=== PATIENT | female | born 1965 | race Caucasian/White ===

== ENCOUNTER 2024-10-12 09:41 | Inpatient (IN) | payer MEDICAID ==
[2024-10-12] VITALS (10 sets, daily range): BP systolic 107–131; BP diastolic 65–77; PULSE 68–86; RESP 14–18; TEMP 98.3–98.4; O2SAT 93–98
[~2024-10-12] VITALS: Ht 157.5 cm; Wt 42.0 kg
[~2024-10-12 09:41] MED LIST: IBUP-1986 PO; ONDA-243 PO; OXYC-134 PO
[2024-10-12 10:27] LABS: BASOPHILS # (AUTO) 0.1 X10'3 (0-0.2); BASOPHILS % (AUTO) 1.1 % (0-1); EOSINOPHILS % (AUTO) 0.6 % (0-6); HEMATOCRIT 38.4 % (35.0-45.0); HEMOGLOBIN 12.4 g/dl (12.0-16.0); LYMPHOCYTES # (AUTO) 0.9 X10'3 (1.1-4.8); LYMPHOCYTES % (AUTO) 18.6 % (21-51); MEAN CORPUSCULAR HEMOGLOBIN 31.3 PG (27.0-31.0); MEAN CORPUSCULAR HGB CONC 32.3 g/dL (33.0-36.5); MEAN CORPUSCULAR VOLUME 96.7 FL (78-98); MEAN PLATELET VOLUME 7.3 FL (7.4-10.4); MONOCYTES # (AUTO) 0.5 X10'3 (0-0.9); MONOCYTES % (AUTO) 9.2 % (2-12); NEUTROPHILS # (AUTO) 3.6 X10'3 (1.8-7.7); NEUTROPHILS % (AUTO) 70.5 % (42-75); PLATELET COUNT 302 X10'3 (140-440); RED BLOOD COUNT 3.97 X10'6 (4.20-5.60); RED CELL DISTRIBUTION WIDTH 13.8 % (11.5-14.5); WHITE BLOOD COUNT 5.1 X10'3 (4.5-11.0)
[2024-10-12 10:43] LABS: ALANINE AMINOTRANSFERASE 65 U/L (12-78); ALBUMIN 2.6 G/DL (3.4-5.0); ALBUMIN/GLOBULIN RATIO 0.7 (1.1-1.5); ALKALINE PHOSPHATASE 79 IU/L (46-116); ANION GAP 0 (8-16); ASPARTATE AMINO TRANSFERASE 23 U/L (10-37); BILIRUBIN,TOTAL 0.3 MG/DL (0.1-1.0); BLOOD UREA NITROGEN 10 MG/DL (7-18); BUN/CREATININE RATIO 32.3 (10.0-20.0); CALCIUM 8.1 MG/DL (8.5-10.1); CHLORIDE 99 MMOL/L (99-107); CREATININE 0.31 MG/DL (0.40-0.90); GLUCOSE 117 MG/DL (70-104); POTASSIUM 3.3 MMOL/L (3.5-5.1); SODIUM 137 MMOL/L (135-145); TOTAL CARBON DIOXIDE 37.6 MMOL/L (24-32); TOTAL PROTEIN 6.1 G/DL (6.4-8.2); eCRCL 131 ML/MIN; eGFR > 90 ML/MIN
[2024-10-12] MEDS: methylPREDNISolone sod succ 125mg/2ml vial IV ONE (10:48)
[2024-10-12] MEDS: LORazepam 1 MG tablet PO ONE (10:48)
[2024-10-12 10:54] LABS: PRO BRAIN NATRIURETIC PEPTIDE 246 PG/ML (0-125)
[2024-10-12] MEDS: CefTRIAXone 2gm/D5W 50ml BAG 50 ML IV ONE (11:19)
[2024-10-12] MEDS: ipratropium/albuterol 3ml nebule NEB ONE (11:20)
[2024-10-12] MEDS: azithromycin/NS 500mg/250ml 250 ML IV ONE (11:20)
[2024-10-12] MEDS: HYDROcodone/acetaminophen 5mg/325mg tablet PO ONE (11:49)
[2024-10-12] MEDS ORDERED: ondansetron/PF 4mg/2ml inj IV PRN (13:55)
[2024-10-12] MEDS ORDERED: magnesium hydroxide 30ml (MOM) UD suspension PO PRN (13:55)
[2024-10-12] MEDS ORDERED: potassium Cl 40MEQ/1/2NS 520ml 520 ML IV PRN (13:55)
[2024-10-12] MEDS ORDERED: magnesium Cl slow-release 64mg tablet PO PRN (13:55)
[2024-10-12] MEDS ORDERED: potassium Cl 20 mEq SR tablet PO PRN ×2 (13:55)
[2024-10-12] MEDS ORDERED: magnesium sulf-water 2g/50mL 50 ML IV PRN (13:55)
[2024-10-12] MEDS ORDERED: magnesium sulf-water 4G/100mL 100 ML IV PRN (13:55)
[2024-10-12] MEDS ORDERED: mag hydrox/Alum hydrox/simeth 30ml oral suspension PO PRN (13:55)
[2024-10-12 14:41] LABS: MAGNESIUM 1.7 MG/DL (1.5-2.4); PHOSPHORUS 2.7 MG/DL (2.3-4.5)
[2024-10-12] MEDS: normal saline 1000ml 1,000 ML IV SCH (15:25)
[2024-10-12] MEDS: azithromycin/NS 500mg/250ml 250 ML IV SCH (15:25)
[2024-10-12] MEDS: ipratropium/albuterol 3ml nebule NEB SCH (16:36)
[2024-10-12] MEDS ORDERED: ALBU18HF2 INH (16:51)
[2024-10-12] MEDS ORDERED: CLON-570 PO (16:51)
[2024-10-12] MEDS ORDERED: MIRT-87 PO (16:51)
[2024-10-12] MEDS ORDERED: ESCI20TA39 (16:51)
[2024-10-12] MEDS: K and/or MAG REPLACEMENT MC SCH (19:48)
[2024-10-12] MEDS: acetaminophen 325mg tablet PO PRN (19:55)
[2024-10-12] MEDS: ipratropium/albuterol 3ml nebule NEB PRN (20:31)
[2024-10-12] MEDS: Melatonin 3mg tablet PO SCH (21:03)
[2024-10-12] MEDS: clonazePAM 1mg tablet PO PRN (21:03)
[2024-10-12] MEDS: mirtazapine 15mg tablet PO SCH (21:03)
[2024-10-13] VITALS (16 sets, daily range): BP systolic 100–125; BP diastolic 51–79; PULSE 62–87; RESP 16–20; TEMP 97.8–98.9; O2SAT 93–100
[2024-10-13 06:07] LABS: BASOPHILS # (AUTO) 0.1 X10'3 (0-0.2); BASOPHILS % (AUTO) 0.9 % (0-1); EOSINOPHILS % (AUTO) 0.5 % (0-6); HEMATOCRIT 34.9 % (35.0-45.0); HEMOGLOBIN 11.5 g/dl (12.0-16.0); LYMPHOCYTES # (AUTO) 1.7 X10'3 (1.1-4.8); LYMPHOCYTES % (AUTO) 28.4 % (21-51); MEAN CORPUSCULAR HEMOGLOBIN 32.1 PG (27.0-31.0); MEAN CORPUSCULAR VOLUME 97.2 FL (78-98); MEAN PLATELET VOLUME 7.8 FL (7.4-10.4); MONOCYTES # (AUTO) 0.8 X10'3 (0-0.9); MONOCYTES % (AUTO) 12.9 % (2-12); NEUTROPHILS # (AUTO) 3.4 X10'3 (1.8-7.7); NEUTROPHILS % (AUTO) 57.3 % (42-75); PLATELET COUNT 303 X10'3 (140-440); RED BLOOD COUNT 3.59 X10'6 (4.20-5.60); RED CELL DISTRIBUTION WIDTH 13.4 % (11.5-14.5); WHITE BLOOD COUNT 5.9 X10'3 (4.5-11.0)
[2024-10-13 06:24] LABS: ALBUMIN 2.2 G/DL (3.4-5.0); ANION GAP 0 (8-16); BLOOD UREA NITROGEN 10 MG/DL (7-18); BUN/CREATININE RATIO 45.5 (10.0-20.0); CALCIUM 8.3 MG/DL (8.5-10.1); CHLORIDE 104 MMOL/L (99-107); CREATININE 0.22 MG/DL (0.40-0.90); GLUCOSE 94 MG/DL (70-104); POTASSIUM 3.8 MMOL/L (3.5-5.1); SODIUM 144 MMOL/L (135-145); TOTAL CARBON DIOXIDE 39.7 MMOL/L (24-32); eCRCL 185 ML/MIN; eGFR > 90 ML/MIN
[2024-10-13] MEDS: budesonide 0.5mg/2ml UD nebule IH SCH (08:05)
[2024-10-13] MEDS: methylPREDNISolone sod succ 125mg/2ml vial IV SCH (08:56)
[2024-10-13] MEDS: enoxaparin 40mg/0.4ml syringe SUBCUT SCH (09:00)
[2024-10-13] MEDS: CefTRIAXone/D5W-Rocephin 1gm 50 ML IV SCH (09:01)
[2024-10-13 13:04] LABS: FREE T4 (FREE THYROXINE) 0.79 NG/DL (0.73-1.40); THYROID STIMULATING HORMONE 0.84 ulU/ml (0.34-4.50)
[2024-10-13] MEDS: HYDROcodone/acetaminophen 5mg/325mg tablet PO PRN (13:19)
[2024-10-13] MEDS: lactose-reduced food (Ensure Enlive) - 237ml bottle PO SCH (18:00)
[2024-10-13] MEDS: acetaZOLAMIDE 250mg tablet PO SCH (20:55)
[2024-10-14 06:00] VITALS: BP 109/71; PULSE 75; RESP 16; TEMP 98.6; O2SAT 93
[2024-10-14 06:45] LABS: BASOPHILS # (AUTO) 0.1 X10'3 (0-0.2); BASOPHILS % (AUTO) 1.3 % (0-1); EOSINOPHILS % (AUTO) 0 % (0-6); HEMATOCRIT 37.6 % (35.0-45.0); HEMOGLOBIN 12.1 g/dl (12.0-16.0); LYMPHOCYTES # (AUTO) 0.8 X10'3 (1.1-4.8); LYMPHOCYTES % (AUTO) 12.7 % (21-51); MEAN CORPUSCULAR HEMOGLOBIN 31.7 PG (27.0-31.0); MEAN CORPUSCULAR HGB CONC 32.3 g/dL (33.0-36.5); MEAN CORPUSCULAR VOLUME 98.2 FL (78-98); MEAN PLATELET VOLUME 8.1 FL (7.4-10.4); MONOCYTES # (AUTO) 0.2 X10'3 (0-0.9); MONOCYTES % (AUTO) 3.8 % (2-12); NEUTROPHILS % (AUTO) 82.2 % (42-75); PLATELET COUNT 351 X10'3 (140-440); RED BLOOD COUNT 3.82 X10'6 (4.20-5.60); RED CELL DISTRIBUTION WIDTH 14.1 % (11.5-14.5); WHITE BLOOD COUNT 6.1 X10'3 (4.5-11.0)
[2024-10-14 07:08] LABS: ALBUMIN 2.4 G/DL (3.4-5.0); ANION GAP 4 (8-16); BLOOD UREA NITROGEN 16 MG/DL (7-18); BUN/CREATININE RATIO 47.1 (10.0-20.0); CALCIUM 8.7 MG/DL (8.5-10.1); CHLORIDE 106 MMOL/L (99-107); CREATININE 0.34 MG/DL (0.40-0.90); GLUCOSE 129 MG/DL (70-104); POTASSIUM 4.3 MMOL/L (3.5-5.1); SODIUM 142 MMOL/L (135-145); TOTAL CARBON DIOXIDE 32.4 MMOL/L (24-32); eCRCL 120 ML/MIN; eGFR > 90 ML/MIN
[2024-10-14 08:02] VITALS: PULSE 66; RESP 16; O2SAT 100
[2024-10-14] MEDS: ipratropium/albuterol 3ml nebule NEB SCH (08:02)
[2024-10-14 08:10] VITALS: PULSE 67; RESP 18
[2024-10-14 10:00] VITALS: BP 114/73; PULSE 96; RESP 16; TEMP 98.1; O2SAT 100
[2024-10-14] MEDS ORDERED: PRED10TA23 PO (10:40)
[2024-10-14] MEDS ORDERED: BUDE10.26 INH (10:40)
[2024-10-14] MEDS ORDERED: LEVO-65 PO (10:40)
[2024-10-14 10:45] VITALS: RESP 16; O2SAT 100
[2024-10-14] MEDS ORDERED: ALBU18HF2 INH (10:46)
== END 2024-10-14 16:30 | disposition home health service (06) | DRG 140 ==
LOC: ER 09:41 → ED HOLD 11:18 → ORTHO 4S 19:20
PROVIDERS: ADMIT Internal Medicine; ATTEND Internal Medicine
DX: J44.1 Chronic obstructive pulmonary disease with (acute) exacerbation (principal); J96.21 Acute and chronic respiratory failure with hypoxia; J18.9 Pneumonia, unspecified organism; L89.159 Pressure ulcer of sacral region, unspecified stage; J44.0 Chronic obstructive pulmonary disease with (acute) lower respiratory infection; S63.591A Other specified sprain of right wrist, initial encounter; W18.39XA Other fall on same level, initial encounter; Y93.89 Activity, other specified; Y92.89 Other specified places as the place of occurrence of the external cause; Y99.8 Other external cause status; Z88.5 Allergy status to narcotic agent; Z90.710 Acquired absence of both cervix and uterus; Z87.442 Personal history of urinary calculi
CPT/HCPCS: 36415; 71045; 73110; 80048; 80053; 83735; 83880; 84100; 84439; 84443; 84484; 85025; 87081; 93005; 94640; 94760; 99285; A4615; A6209; A6212; A6213; G0378; J0456; J0696; J1650; J2919; J7030

== ENCOUNTER 2024-10-19 21:17 | Inpatient (IN) | payer MEDICAID ==
[~2024-10-19] VITALS: Ht 160 cm; Wt 45.4 kg
[~2024-10-19 21:17] MED LIST changes: +ALBU18HF2 INH; +BUDE10.26 INH; +CLON-570 PO; +ESCI20TA39; -IBUP-1986 PO; +LEVO-65 PO; +MIRT-87 PO; -ONDA-243 PO; -OXYC-134 PO; +PRED10TA23 PO
[2024-10-19] MEDS: ipratropium/albuterol 3ml nebule NEB STA ×2 (21:36→22:28)
[2024-10-19 21:39] VITALS: PULSE 107; RESP 20; O2SAT 97
[2024-10-19 21:47] LABS: BASOPHILS % (AUTO) 0.2 % (0-1); EOSINOPHILS % (AUTO) 0.5 % (0-6); HEMATOCRIT 35.5 % (35.0-45.0); HEMOGLOBIN 11.7 g/dl (12.0-16.0); LYMPHOCYTES # (AUTO) 0.6 X10'3 (1.1-4.8); LYMPHOCYTES % (AUTO) 9.9 % (21-51); MEAN CORPUSCULAR HEMOGLOBIN 32.4 PG (27.0-31.0); MEAN CORPUSCULAR HGB CONC 32.9 g/dL (33.0-36.5); MEAN CORPUSCULAR VOLUME 98.4 FL (78-98); MEAN PLATELET VOLUME 7.1 FL (7.4-10.4); MONOCYTES # (AUTO) 1.2 X10'3 (0-0.9); MONOCYTES % (AUTO) 20.1 % (2-12); NEUTROPHILS # (AUTO) 4.3 X10'3 (1.8-7.7); NEUTROPHILS % (AUTO) 69.3 % (42-75); PLATELET COUNT 329 X10'3 (140-440); RED BLOOD COUNT 3.61 X10'6 (4.20-5.60); RED CELL DISTRIBUTION WIDTH 14.4 % (11.5-14.5); WHITE BLOOD COUNT 6.2 X10'3 (4.5-11.0)
[2024-10-19 21:48] VITALS: PULSE 102; RESP 17; O2SAT 98
[2024-10-19] MEDS: methylPREDNISolone sod succ 125mg/2ml vial IV ONE (22:07)
[2024-10-19 22:08] LABS: ALBUMIN 2.7 G/DL (3.4-5.0); ANION GAP -1 (8-16); BLOOD UREA NITROGEN 24 MG/DL (7-18); BUN/CREATININE RATIO 64.9 (10.0-20.0); CALCIUM 8.6 MG/DL (8.5-10.1); CHLORIDE 101 MMOL/L (99-107); CREATININE 0.37 MG/DL (0.40-0.90); GLUCOSE 131 MG/DL (70-104); POTASSIUM 4.5 MMOL/L (3.5-5.1); PRO BRAIN NATRIURETIC PEPTIDE 202 PG/ML (0-125); SODIUM 141 MMOL/L (135-145); eCRCL 119 ML/MIN; eGFR > 90 ML/MIN
[2024-10-19 22:16] LABS: TOTAL CARBON DIOXIDE 41.1 MMOL/L (24-32)
[2024-10-19 22:21] LABS: TOTAL CELLS COUNTED 100
[2024-10-19] MEDS: LORazepam 2 mg/ml vial IV ONE ×2 (22:27→23:54)
[2024-10-19 22:28] LABS: D-DIMER 0.58 MG/L FEU (0-0.50)
[2024-10-19] MEDS: magnesium sulf-water 2g/50mL 50 ML IV ONE (22:29)
[2024-10-19 22:32] VITALS: PULSE 105; RESP 20; O2SAT 99
[2024-10-19 22:44] VITALS: PULSE 99; RESP 19; O2SAT 94
[2024-10-19] MEDS: azithromycin/NS 500mg/250ml 250 ML IV ONE (23:42)
[2024-10-19] MEDS: HYDROcodone/acetaminophen 5mg/325mg tablet PO ONE (23:55)
[2024-10-20] VITALS (22 sets, daily range): BP systolic 114–147; BP diastolic 40–95; PULSE 64–94; RESP 16–26; TEMP 97–98.7; O2SAT 92–96
[2024-10-20] MEDS ORDERED: magnesium sulf-water 2g/50mL 50 ML IV PRN (00:45)
[2024-10-20] MEDS ORDERED: mag hydrox/Alum hydrox/simeth 30ml oral suspension PO PRN (00:45)
[2024-10-20] MEDS ORDERED: magnesium hydroxide 30ml (MOM) UD suspension PO PRN (00:45)
[2024-10-20] MEDS ORDERED: potassium Cl 20 mEq SR tablet PO PRN ×2 (00:45)
[2024-10-20] MEDS ORDERED: magnesium sulf-water 4G/100mL 100 ML IV PRN (00:45)
[2024-10-20] MEDS ORDERED: ondansetron/PF 4mg/2ml inj IV PRN (00:45)
[2024-10-20] MEDS ORDERED: potassium Cl 40MEQ/1/2NS 520ml 520 ML IV PRN (00:45)
[2024-10-20] MEDS ORDERED: acetaminophen 325mg tablet PO PRN (00:45)
[2024-10-20] MEDS ORDERED: magnesium Cl slow-release 64mg tablet PO PRN (00:45)
[2024-10-20] MEDS ORDERED: ipratropium/albuterol 3ml nebule NEB PRN (00:50)
[2024-10-20] MEDS: normal saline 1000ml 1,000 ML IV SCH ×2 (00:55→16:05)
[2024-10-20 01:15] LABS: ABG BASE EXCESS 2.5 mmol/L (-2.0-3.0); ABG HCO3 30.2 mmol/L (21.0-28.0); ABG OXYGEN SATURATION 95.3 % (94.0-98.0); ABG PCO2 (T) 62.1 mmHg (32.0-45.0); ABG PH (T) 7.305 (7.350-7.450); ABG PO2 (T) 79.7 mmHg (83.0-108.0); ALLEN'S TEST POSITIVE; FCOHb 0.3 % (0.5-1.5); FHHb 4.7 % (0.0-5.0); FMetHb 0.3 % (0.0-1.5); FO2Hb 94.7 % (94.0-98.0); MODE NASAL CANNULA; TOTAL HEMOGLOBIN 12.5 G/dl (12.0-16.0)
[2024-10-20 03:38] LABS: BASOPHILS % (AUTO) 0.1 % (0-1); EOSINOPHILS % (AUTO) 0 % (0-6); HEMATOCRIT 34.8 % (35.0-45.0); HEMOGLOBIN 11.1 g/dl (12.0-16.0); LYMPHOCYTES % (AUTO) 3.7 % (21-51); MEAN CORPUSCULAR HEMOGLOBIN 31.5 PG (27.0-31.0); MEAN CORPUSCULAR HGB CONC 31.9 g/dL (33.0-36.5); MEAN CORPUSCULAR VOLUME 98.6 FL (78-98); MONOCYTES % (AUTO) 1.7 % (2-12); NEUTROPHILS % (AUTO) 94.5 % (42-75); PLATELET COUNT 318 X10'3 (140-440); RED BLOOD COUNT 3.53 X10'6 (4.20-5.60); RED CELL DISTRIBUTION WIDTH 14.4 % (11.5-14.5); WHITE BLOOD COUNT 6.2 X10'3 (4.5-11.0)
[2024-10-20 03:39] LABS: ALANINE AMINOTRANSFERASE 132 U/L (12-78); ALBUMIN 2.6 G/DL (3.4-5.0); ALBUMIN/GLOBULIN RATIO 0.9 (1.1-1.5); ALKALINE PHOSPHATASE 67 IU/L (46-116); ANION GAP -2 (8-16); ASPARTATE AMINO TRANSFERASE 66 U/L (10-37); BILIRUBIN,TOTAL 0.1 MG/DL (0.1-1.0); BLOOD UREA NITROGEN 21 MG/DL (7-18); BUN/CREATININE RATIO 63.6 (10.0-20.0); CALCIUM 8.1 MG/DL (8.5-10.1); CHLORIDE 103 MMOL/L (99-107); CREATININE 0.33 MG/DL (0.40-0.90); GLUCOSE 153 MG/DL (70-104); LYMPHOCYTES # (AUTO) 0.2 X10'3 (1.1-4.8); MAGNESIUM 2.2 MG/DL (1.5-2.4); MONOCYTES # (AUTO) 0.1 X10'3 (0-0.9); NEUTROPHILS # (AUTO) 5.8 X10'3 (1.8-7.7); PHOSPHORUS 2.9 MG/DL (2.3-4.5); POTASSIUM 4.9 MMOL/L (3.5-5.1); SODIUM 141 MMOL/L (135-145); TOTAL CARBON DIOXIDE 39.9 MMOL/L (24-32); TOTAL PROTEIN 5.5 G/DL (6.4-8.2); eCRCL 133 ML/MIN; eGFR > 90 ML/MIN
[2024-10-20] MEDS: albuterol 2.5 MG/3 ML nebule NEB SCH (03:52)
[2024-10-20 03:56] LABS: APTT 25 SECONDS (22-32); PROTHROMBIN TIME 10.1 SECONDS (9.0-12.0)
[2024-10-20] MEDS: K and/or MAG REPLACEMENT MC SCH (07:39)
[2024-10-20] MEDS: docusate sod 100mg capsule PO SCH (07:39)
[2024-10-20] MEDS: acetaminophen 325mg tablet PO PRN (07:46)
[2024-10-20] MEDS: methylPREDNISolone sod succ 125mg/2ml vial IV SCH (07:46)
[2024-10-20] MEDS: ESCITALOPRAM 10 mg tablet 10 MG TABLET PO SCH (07:47)
[2024-10-20] MEDS: LORazepam 0.5 MG tablet PO PRN (10:25)
[2024-10-20] MEDS ORDERED: iohexol 300mg/ml 100ml inj. ONE (12:09)
[2024-10-20] MEDS: HYDROcodone/acetaminophen 5mg/325mg tablet PO PRN (12:15)
[2024-10-20] MEDS: acetaZOLAMIDE 250mg tablet PO ONE (14:21)
[2024-10-20] MEDS: clonazePAM 1mg tablet PO PRN (17:06)
[2024-10-20] MEDS: enoxaparin 40mg/0.4ml syringe SQ SCH (19:53)
[2024-10-20] MEDS: mirtazapine 15mg tablet PO SCH (20:06)
[2024-10-20] MEDS: azithromycin/NS 500mg/250ml 250 ML IV SCH (22:47)
[2024-10-21] VITALS (21 sets, daily range): BP systolic 114–150; BP diastolic 62–76; PULSE 70–97; RESP 12–26; TEMP 96.9–98.5; O2SAT 74–96
[2024-10-21 07:26] LABS: BASOPHILS % (AUTO) 0.3 % (0-1); EOSINOPHILS % (AUTO) 0 % (0-6); HEMATOCRIT 34.6 % (35.0-45.0); HEMOGLOBIN 11.2 g/dl (12.0-16.0); LYMPHOCYTES # (AUTO) 0.7 X10'3 (1.1-4.8); LYMPHOCYTES % (AUTO) 14.1 % (21-51); MEAN CORPUSCULAR HEMOGLOBIN 32.1 PG (27.0-31.0); MEAN CORPUSCULAR HGB CONC 32.5 g/dL (33.0-36.5); MEAN CORPUSCULAR VOLUME 98.8 FL (78-98); MEAN PLATELET VOLUME 7.7 FL (7.4-10.4); MONOCYTES # (AUTO) 0.9 X10'3 (0-0.9); MONOCYTES % (AUTO) 18.2 % (2-12); NEUTROPHILS # (AUTO) 3.4 X10'3 (1.8-7.7); NEUTROPHILS % (AUTO) 67.4 % (42-75); PLATELET COUNT 304 X10'3 (140-440); RED CELL DISTRIBUTION WIDTH 14.7 % (11.5-14.5)
[2024-10-21 07:42] LABS: APTT 26 SECONDS (22-32); PROTHROMBIN TIME 10.5 SECONDS (9.0-12.0)
[2024-10-21 07:52] LABS: ALANINE AMINOTRANSFERASE 140 U/L (12-78); ALBUMIN 2.3 G/DL (3.4-5.0); ALBUMIN/GLOBULIN RATIO 0.8 (1.1-1.5); ALKALINE PHOSPHATASE 59 IU/L (46-116); ANION GAP 1 (8-16); ASPARTATE AMINO TRANSFERASE 59 U/L (10-37); BILIRUBIN,TOTAL 0.1 MG/DL (0.1-1.0); BLOOD UREA NITROGEN 17 MG/DL (7-18); BUN/CREATININE RATIO 54.8 (10.0-20.0); CALCIUM 8.3 MG/DL (8.5-10.1); CHLORIDE 103 MMOL/L (99-107); CREATININE 0.31 MG/DL (0.40-0.90); GLUCOSE 107 MG/DL (70-104); MAGNESIUM 1.7 MG/DL (1.5-2.4); PHOSPHORUS 3.6 MG/DL (2.3-4.5); POTASSIUM 4.3 MMOL/L (3.5-5.1); SODIUM 143 MMOL/L (135-145); TOTAL CARBON DIOXIDE 39.4 MMOL/L (24-32); TOTAL PROTEIN 5.1 G/DL (6.4-8.2); eCRCL 142 ML/MIN; eGFR > 90 ML/MIN
[2024-10-21] MEDS: LORazepam 2 mg/ml vial IV PRN (08:03)
[2024-10-21 08:37] LABS: TOTAL CELLS COUNTED 100
[2024-10-21 08:38] LABS: PLATELET ESTIMATE NORMAL
[2024-10-21 08:40] LABS: STOMATOCYTES 1+
[2024-10-21] MEDS: JUVEN Shake w/Arg/Glut/Ca2+Bmb (Juven 19.3gm) pkt 240ml PO SCH (12:30)
[2024-10-21] MEDS: acetaZOLAMIDE 250mg tablet PO ONE (12:35)
[2024-10-21] MEDS: lactose-reduced food (Ensure Enlive) - 237ml bottle PO SCH (18:00)
[2024-10-22] VITALS (13 sets, daily range): BP systolic 115–138; BP diastolic 71–83; PULSE 69–94; RESP 14–24; TEMP 97.2–98.8; O2SAT 94–98
[2024-10-22 06:43] LABS: BASOPHILS % (AUTO) 0.1 % (0-1); EOSINOPHILS % (AUTO) 0 % (0-6); HEMATOCRIT 33.9 % (35.0-45.0); HEMOGLOBIN 11.2 g/dl (12.0-16.0); LYMPHOCYTES # (AUTO) 0.9 X10'3 (1.1-4.8); LYMPHOCYTES % (AUTO) 8.8 % (21-51); MEAN CORPUSCULAR HEMOGLOBIN 32.6 PG (27.0-31.0); MEAN CORPUSCULAR VOLUME 98.8 FL (78-98); MEAN PLATELET VOLUME 7.3 FL (7.4-10.4); MONOCYTES # (AUTO) 1.4 X10'3 (0-0.9); MONOCYTES % (AUTO) 14.7 % (2-12); NEUTROPHILS # (AUTO) 7.5 X10'3 (1.8-7.7); NEUTROPHILS % (AUTO) 76.4 % (42-75); PLATELET COUNT 275 X10'3 (140-440); RED BLOOD COUNT 3.43 X10'6 (4.20-5.60); WHITE BLOOD COUNT 9.8 X10'3 (4.5-11.0)
[2024-10-22 06:52] LABS: APTT 25 SECONDS (22-32); PROTHROMBIN TIME 10.5 SECONDS (9.0-12.0)
[2024-10-22 06:56] LABS: ALANINE AMINOTRANSFERASE 242 U/L (12-78); ALBUMIN 2.2 G/DL (3.4-5.0); ALBUMIN/GLOBULIN RATIO 0.8 (1.1-1.5); ALKALINE PHOSPHATASE 58 IU/L (46-116); ANION GAP -2 (8-16); ASPARTATE AMINO TRANSFERASE 96 U/L (10-37); BILIRUBIN,TOTAL 0.1 MG/DL (0.1-1.0); BLOOD UREA NITROGEN 17 MG/DL (7-18); CALCIUM 8.3 MG/DL (8.5-10.1); CHLORIDE 104 MMOL/L (99-107); CREATININE 0.27 MG/DL (0.40-0.90); GLUCOSE 104 MG/DL (70-104); MAGNESIUM 1.6 MG/DL (1.5-2.4); POTASSIUM 4.4 MMOL/L (3.5-5.1); SODIUM 144 MMOL/L (135-145); TOTAL PROTEIN 4.9 G/DL (6.4-8.2); eCRCL 163 ML/MIN; eGFR > 90 ML/MIN
[2024-10-22 07:03] LABS: TOTAL CARBON DIOXIDE 42.2 MMOL/L (24-32)
[2024-10-22] MEDS: acetaZOLAMIDE 250mg tablet PO SCH (08:08)
[2024-10-22] MEDS: levoFLOXACIN 750MG TABLET PO SCH (08:30)
[2024-10-22] MEDS: methylPREDNISolone sod succ 125mg/2ml vial IV SCH (09:33)
== END 2024-10-22 17:17 | DRG 140 ==
LOC: ER 21:18 → ED HOLD 10-20 00:47 → PCU 3S 10-20 16:09
PROVIDERS: ADMIT Internal Medicine Sleep Medicine; ATTEND Internal Medicine
PROC: BW251ZZ Computerized Tomography (CT Scan) of Chest, Abdomen and Pelvis using Low Osmolar Contrast (ICD-10-PCS; principal; 2024-10-20)
DX: J44.1 Chronic obstructive pulmonary disease with (acute) exacerbation (principal); J96.21 Acute and chronic respiratory failure with hypoxia; E46 Unspecified protein-calorie malnutrition; J96.22 Acute and chronic respiratory failure with hypercapnia; Z20.822 Contact with and (suspected) exposure to COVID-19; F32.A Depression, unspecified; R91.8 Other nonspecific abnormal finding of lung field; F41.9 Anxiety disorder, unspecified; Z79.899 Other long term (current) drug therapy; Z88.5 Allergy status to narcotic agent; Z90.710 Acquired absence of both cervix and uterus; Z98.891 History of uterine scar from previous surgery; Z68.1 Body mass index [BMI] 19.9 or less, adult
CPT/HCPCS: 36415; 36600; 71046; 71250; 71260; 74177; 80048; 80053; 82803; 83605; 83735; 83880; 84100; 84145; 84484; 85007; 85018; 85025; 85379; 85610; 85730; 87040; 87081; 87502; 87503; 87811; 93005; 93306; 94640; 94760; 97116; 97161; 97530; 99285; A4615; A6212; A6213; A6258; G0378; J0456; J1650; J2060; J2919; J7030; Q9967